=== PATIENT | female | born 1960 | race Caucasian/White ===

== ENCOUNTER → 2016-05-29 | Outpatient (CLI) | payer OTHER | LOC: HEART 5 05-25 09:30 → ECHO 10:42 | DX: R07.9 Chest pain, unspecified (principal); R00.2 Palpitations; Z87.09 Personal history of other diseases of the respiratory system | CPT/HCPCS: ECHO; 78452; 93017; 93306; A9502; J2785 ==

== ENCOUNTER 2021-11-20 15:06 | Emergency (ER) | payer OTHER ==
[2021-11-20 15:55] LABS: RED BLOOD COUNT 4.23 M/UL (4.00-5.10); WHITE BLOOD COUNT 5.9 K/UL (4.5-11.0)
[2021-11-20 16:32] LABS: BUN/CREATININE RATIO 14 (0-10)
[2021-11-20] MEDS ORDERED: HYDROCODON-ACE1 EAC2 PO (17:50)
[2021-11-20] MEDS ORDERED: MEGACE TAB 20 M20 MG PO (17:50)
[2021-11-20] MEDS ORDERED: ZOFRAN ODT 4 MG4 MG GT (17:52)
== END 2021-11-20 18:05 | disposition home or self-care (01) ==
LOC: ER1 15:06
PROVIDERS: Physician Assistant
DX: G89.3 Neoplasm related pain (acute) (chronic) (principal); M54.50 Low back pain, unspecified; E11.9 Type 2 diabetes mellitus without complications; W19.XXXA Unspecified fall, initial encounter
CPT/HCPCS: 71045; 72128; 72131; 80053; 82550; 82553; 83605; 84484; 85025; 93005; 99284